=== PATIENT | male | born 1965 | race Caucasian/White ===

== ENCOUNTER 2020-12-15 19:48 | Emergency (ER) | payer OTHER, SELFPAY ==
[2020-12-15 19:52] VITALS: BP 143/100; PULSE 80; RESP 18; TEMP 36.6; O2SAT 98
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
[2020-12-15 20:55] VITALS: BP 148/92; PULSE 82; RESP 16; TEMP 36.3; O2SAT 100
== END 2020-12-15 20:56 | disposition home or self-care (01) ==
PROVIDERS: Emergency Provider Emergency Medicine
DX: S01.01XA Laceration without foreign body of scalp, initial encounter (principal); W22.8XXA Striking against or struck by other objects, initial encounter
CPT/HCPCS: 12001; 99283